=== PATIENT | female | born 1985 | race Caucasian/White ===

== ENCOUNTER 2020-09-20 | Emergency (ER) | payer MEDICAID, SELFPAY ==
--- NOTE | ~2020-09-20 | XR_ITS ---
EXAMINATION: XR chest 2V EXAM DATE: 09/20/2020 01:24 INDICATION: Midsternal chest pain for a day. Dizziness. TECHNIQUE: Frontal and lateral projections of the chest obtained and reviewed. Comparison is made to prior examination from 11/23/2018. FINDINGS: The lungs are clear. There are no pleural effusions. The cardiomediastinal silhouette is within normal limits. There is no pneumothorax suspected. The bones and soft tissues are unremarkab le. IMPRESSION: Unremarkable chest x-ray exam. Reviewed, dictated and finalized at location A.
[2020-09-20 00:03] VITALS: BP 150/91; PULSE 116; RESP 16; TEMP 36.3; O2SAT 100
--- NOTE | 2020-09-20 00:06 | ECG_ITS ---
Measurements Intervals [place] Rate: 110 P: 51 [place]: 104 QRS: 80 QRSD: 105 T: 50 QT: 316 QTc: 428 Interpretive Statements SINUS TACHYCARDIA WITH SHORT [place] INTERVAL ABNORMAL ECG Electronically Signed On 09-20-2020 8:05:45 CDT by Lazaro Ramos D.O.
--- NOTE | 2020-09-20 00:28 | PC.NURSE ---
Pt back up to the desk stating she feels like her pulse is high and asked to have her pulse checked. HR remains at 115 as on the EKG.
[2020-09-20 00:59] LABS: Basophils Percent Auto 0.4 % (0.2-1.2); Eosinophils Absolute Auto 0.2 K/mm3 (0-0.3); Eosinophils Percent Auto 1.5 % (0-4.4); Hemoglobin 14.6 g/dL (12.0-15.0); Immature Granulocyte Absolute 0.02 K/mm3 (0.00-0.031); Immature Granulocyte Percent A 0.2 % (0-0.5); Lymphocytes Absolute Auto 2.89 K/mm3 (0.9-3.2); Lymphocytes Percent Auto 28.3 % (18.3-44.2); Mean Corpuscular Hemoglobin 31.7 pg (26-34); Mean Corpuscular Volume 93.3 fl (80-100); Mean Platelet Volume 9.7 fl (7.4-10.4); Monocytes Absolute Auto 0.7 K/mm3 (0.1-0.6); Monocytes Percent Auto 6.7 % (2.6-8.5); Neutrophils Absolute Auto 6.4 K/mm3 (1.3-6.7); Neutrophils Percent Auto 62.9 % (45.5-73.1); Platelet Count Result 371 k/mm3 (150-375); Red Blood Count 4.61 M/mm3 (4.2-5.4); White Blood Count 10.2 K/mm3 (4.5-10.0)
[2020-09-20 01:08] LABS: Prothrombin Time 13.3 Seconds (11.1-14.7)
[2020-09-20 01:09] LABS: Partial Thromboplastin Time 28.1 SECONDS (22.3-36.8)
[2020-09-20 01:12] LABS: Anion Gap 8 mmol/L (8-16); Blood Urea Nitrogen 11 mg/dL (7-17); Calcium 9.5 mg/dL (8.4-10.2); Carbon Dioxide 26 mmol/L (22-30); Chloride 106 mmol/L (98-107); Estimated CRCL calculation 96 ml/min; Estimated Glomerular Filt Rate > 60; Glucose 116 mg/dL (65-105); Potassium 3.4 mmol/L (3.4-5.0); Sodium 140 mmol/L (137-145)
[2020-09-20 01:24] LABS: Troponin I < 0.012 ng/mL (0.000-0.034)
--- NOTE | 2020-09-20 01:46 | ED.GENADULT ---
HPI - General Adult General Chief complaint: Unspecified Stated complaint: limb numbness, weakness, tachycardia, CP,dysphagia Time Seen by Provider: 09/20/20 01:31 History of Present Illness HPI narrative: 35 yo female with h/o anxiety presents to the ED for multiple complaints. About 1 hour prior to arrival she became very dizzy. She then developed CP, SOB, and racing heart rate. She just started taking Buspar for anxiety. This felt like an anxiety attack, but stronger than she has ever had before. Symptoms have essentially resolved at this time. Related Data Allergies Allergy/AdvReac Type Severity Reaction Status Date / Time No Known Allergies Allergy Verified 09/20/20 01:55 Review of Systems Review of Systems: All systems reviewed & are unremarkable except as noted in HPI and below Constitutional: Constitutional: Reports as per HPI Eyes: Eyes: Reports no additional eye complaints ENT: Reports dizziness Cardiovascular: Cardiovascular: Reports as per HPI Respiratory: Respiratory: Reports as per HPI Gastrointestinal: Gastrointestinal: Denies abdominal pain Genitourinary: Genitourinary: Reports no additional female genitourinary complaints Musculoskeletal: Musculoskeletal: Reports no additional musculoskeletal complaints Neurologic: Reports as per HPI Psychiatric: Psychiatric: Reports anxiety [facility] Past Medical History Medical History (Updated 10/03/20 @ 11:04 by Sam Frederick MD) Anxiety Social History Social History (Updated 10/06/20 @ 10:26 by Sam Frederick MD) Smoking status: Never smoker Substance use: never Exam Const: General: healthy appearing, no acute distress and alert Orientation/consciousness: patient oriented x3 HENMT: Head: normal to inspection Neck: Neck: normal visual inspection and no lymphadenopathy Chest: Chest palpation & inspection: no tenderness Resp: Effort & Inspection: normal respiratory effort Auscultation: clear to auscultation bilaterally, no rales, no rhonchi and no wheezes Cardio: Jugular venous distension: no JVD Rate: regular rate Rhythm: regular rhythm Heart sounds: no murmurs GI: Inspection: non-distended GI Palp: Yes Soft to palpation and No Tenderness to palpation present (GI) Skin: General skin exam: normal color Neuro: General: patient oriented x3 and moves all extremities Speech: normal speech Extrem: General: no edema Psych: Appearance: well kempt Affect: normal affect Course Vital Signs Vital signs: Vital Signs Temperature 36.3 C L 09/20/20 00:03 Pulse Rate 116 H 09/20/20 00:03 Respiratory Rate 16 09/20/20 00:03 Blood Pressure 150/91 H 09/20/20 00:03 Pulse Oximetry 100 09/20/20 00:03 Temperature 36.3 C L 09/20/20 00:03 Pulse Rate 87 09/20/20 02:03 Respiratory Rate 16 09/20/20 02:03 Blood Pressure 120/80 09/20/20 02:03 Pulse Oximetry 99 09/20/20 02:03 Medical Decision Making MDM Narrative Medical decision making narrative: EKG normal aside from mild sinus tachycardia. Labs unremarkable. Symptoms could be reaction to new medication, anxiety, or a combination of the 2. Medical Records Medical records reviewed: Yes I reviewed the external patient's medical records. Vital Signs Vital Signs: Vital Signs Temperature 36.3 C L 09/20/20 00:03 Pulse Rate 116 H 09/20/20 00:03 Respiratory Rate 16 09/20/20 00:03 Blood Pressure 150/91 H 09/20/20 00:03 Pulse Oximetry 100 09/20/20 00:03 Temperature 36.3 C L 09/20/20 00:03 Pulse Rate 87 09/20/20 02:03 Respiratory Rate 16 09/20/20 02:03 Blood Pressure 120/80 09/20/20 02:03 Pulse Oximetry 99 09/20/20 02:03 Lab Data Lab results reviewed: Yes I reviewed the patient's lab results. Result diagrams: 09/20/20 00:50 09/20/20 00:50 Labs: Lab Results 09/20/20 09/20/20 09/20/20 Range/Units 00:50 00:50 00:50 WBC 10.2 H (4.5-10.0) K/mm3 RBC 4.61 (4.2-5.4) M/mm3 Hgb
[2020-09-20 01:48] VITALS: BP 120/87; PULSE 81; RESP 16; O2SAT 97
[2020-09-20 02:03] VITALS: BP 120/80; PULSE 87; RESP 16; O2SAT 99
== END 2020-09-20 02:03 | disposition home or self-care (01) ==
PROVIDERS: Emergency Provider Emergency Medicine
DX: F41.0 Panic disorder [episodic paroxysmal anxiety] (principal); R00.0 Tachycardia, unspecified
CPT/HCPCS: 36415; 71046; 80048; 84484; 85025; 85610; 85730; 93005; 96360; 99284

== ENCOUNTER 2021-03-21 19:18 | Emergency (ER) | payer BC, SELFPAY ==
--- NOTE | ~2021-03-21 | XR_ITS ---
EXAMINATION: XR chest 1V portable DATE: 03/22/2021 22:40 INDICATION: Psychosis. TECHNIQUE: A single frontal view of the chest was obtained. COMPARISON: Chest 2 views 09/20/2020 FINDINGS: The chest demonstrates clear lungs without pneumonia, pleural effusion, or pneumothorax. Th e heart size is normal. IMPRESSION: 1. No acute cardiopulmonary disease. Reviewed, dictated and finalized at location A.
[2021-03-21 19:31] VITALS: BP 135/101; PULSE 109; RESP 16; TEMP 36.5; O2SAT 97
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
--- NOTE | 2021-03-21 20:23 | ECG_ITS ---
Measurements Intervals [place] Rate: 87 P: 50 [place]: 132 QRS: 68 QRSD: 96 T: 46 QT: 395 QTc: 476 Interpretive Statements SINUS RHYTHM MINIMAL Q WAVES- INFERIOR LEADS ST ELEVATION IN DIFFUSE LEADS- PROABLY EARLY REPOLARIZATION ABNORMALITY BORDERLINE ECG Electronically Signed On 03-22-2021 7:13:52 CDT by Lazaro Ramos D.O.
--- NOTE | 2021-03-21 20:25 | PC.NURSE ---
Pt escalating at this time. Pt came out of room, grabbed the phone off the wall, threw it, then slammed it against the wall. Pt did return to room shortly then proceeded to run out of room 15, down the [address] and into the staff male bathroom. Pt then locked herself into the bathroom. Security was there and we were able to deescalate patient to unlock the door. Pt walked back to her room at this time being escorted by 2 security guards while screaming now will you pay attention to me. How is my son? he in the sun, he has a heart attack he . Pt has 2 security guards at her door way and [facility] to [facility] with getting her medicated and into her room. 2049-Pt willingly took 2 shots of benadryl, haldol, ativan given by NEFTALY Lal. Pt is currently allowing pct to do an ekg, and draw lab done by nova Gayle.
--- NOTE | 2021-03-21 20:30 | PC.NURSE ---
Pt yelling and screaming at staff. Pt running around ED. Pt refusing to stay in her room. PT thrashing about the ED and other patients. PT screaming and threatening staff. Pt locked herself in the staff bathroom and was making herself vomit. PT then went back to her room and stated she would like medication to help her calm down.
[2021-03-21 20:44] LABS: Add Urine Microscopic? YES; Appearance Urine Clear (Clear); Bilirubin Urine Negative (Negative); Blood Urine 3+ (Negative); Color Urine Yellow (Yellow); Glucose Urine UA Negative (Negative); Ketones Urine Negative (Negative); Leukocyte Esterase Ur Negative LEU/UL (Negative); Nitrate Urine Negative (Negative); Protein Urine Negative (Negative); RBC Urine 0-2 /hpf (0-2); Squamous Epithelial Cell Urine Occasional /hpf (Few); Urobilinogen Urine Negative mg/dL (<2.0); WBC Urine 0-3 /hpf
[2021-03-21] MEDS: diphenhydrAMINE HCl INJ 50 MG/ML VIAL 25 MG IM (20:46)
[2021-03-21] MEDS: LORazepam INJ (*CRX) 2 MG/ML VIAL IM (20:46)
[2021-03-21] MEDS: HALOPERIDOL LACTATE 5 MG/ML VIAL IM (20:47)
[2021-03-21 20:50] LABS: Specific Grav Ur 1.002 (1.001-1.035)
[2021-03-21 21:03] LABS: Basophils Absolute Auto 0.1 K/mm3 (0.0-0.1); Basophils Percent Auto 0.5 % (0.2-1.2); Eosinophils Absolute Auto 0.1 K/mm3 (0-0.3); Eosinophils Percent Auto 0.4 % (0-4.4); Hematocrit 38.9 % (37.0-47.0); Hemoglobin 13.4 g/dL (12.0-15.0); Immature Granulocyte Absolute 0.07 K/mm3 (0.00-0.031); Immature Granulocyte Percent A 0.4 % (0-0.5); Lymphocytes Absolute Auto 4.49 K/mm3 (0.9-3.2); Lymphocytes Percent Auto 28.1 % (18.3-44.2); Mean Corpuscular HGB Conc 34.4 g/dl (32-36); Mean Corpuscular Hemoglobin 32.1 pg (26-34); Mean Corpuscular Volume 93.3 fl (80-100); Mean Platelet Volume 9.1 fl (7.4-10.4); Monocytes Absolute Auto 0.9 K/mm3 (0.1-0.6); Monocytes Percent Auto 5.6 % (2.6-8.5); Neutrophils Absolute Auto 10.4 K/mm3 (1.3-6.7); Platelet Count Result 367 k/mm3 (150-375); Red Blood Count 4.17 M/mm3 (4.2-5.4); Red Cell Distribution Width 12.3 % (11.5-14.5)
[2021-03-21 21:15] VITALS: BP 121/92; PULSE 86; RESP 18; TEMP 36.8; O2SAT 98
[2021-03-21 21:15] LABS: Acetaminophen < 10 ug/mL (10-30); Ethanol < 10 mg/dL (<10); Salicylate < 1.0 mg/dL (2-20)
[2021-03-21 21:16] LABS: Alanine Aminotransferase 17 U/L (4-35); Albumin Level 4.7 g/dL (3.5-5.1); Alkaline Phosphatase 94 U/L (38-126); Anion Gap 12 mmol/L (8-16); Aspartate Amino Transferase 21 U/L (14-36); Bilirubin,Total 0.3 mg/dL (0.2-1.3); Blood Urea Nitrogen 5 mg/dL (7-17); Calcium 9.3 mg/dL (8.4-10.2); Carbon Dioxide 22 mmol/L (22-30); Chloride 106 mmol/L (98-107); Estimated Glomerular Filt Rate > 60; Glucose 93 mg/dL (65-110); Potassium 3.5 mmol/L (3.4-5.0); Sodium 140 mmol/L (137-145)
[2021-03-21 21:25] LABS: Barbiturate Screen Urine Negative (Negative); Benzodiazepines Screen Urine Negative (Negative)
[2021-03-21 21:26] LABS: Amphetamine Screen Urine Negative (Negative); Cannabinoid Screen Urine Positive (Negative); Methadone Screen Urine Negative (Negative); Opiate Screen Urine Negative (Negative); Phencyclidine Screen Urine Negative (Negative)
--- NOTE | 2021-03-21 21:42 | PC.NURSE ---
Pt denies suicidal ideation, states she is already . Denies thoughts of hurting herself, denies previous suicide attempts.
--- NOTE | 2021-03-21 21:44 | PC.NURSE ---
Pt states recent changes to her psych meds, states she received her psych meds from another hospital, does not have a PCP managing medications at this time.
--- NOTE | 2021-03-21 22:16 | PC.NURSE ---
per erp dr brown - pt medically clear at this time
--- NOTE | 2021-03-21 22:20 | PC.NURSE ---
yeison @ Crisis contacted at this time. Someone will be out to see this patient shortly.
--- NOTE | 2021-03-21 22:42 | PC.NURSE ---
Pt RAPID covid swabbed. sent to lab, called for receipt.
--- NOTE | 2021-03-21 22:56 | PC.NURSE ---
Crisis coordinator at bedside
--- NOTE | 2021-03-21 23:00 | PC.NURSE ---
Took over care of pt at this time. Pt resting in bed with 1:[address] Pt remains calm. Pt [place] score negative, still requires sitter due to frequent episodes of aggression in ED this evening.
[2021-03-21 23:05] LABS: EDCOVIDSCREEN Negative (Negative)
[2021-03-21] MEDS: NICOTINE (*PBKC) 21 MG PATCH 1 PATCH (23:19)
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
--- NOTE | 2021-03-22 00:31 | PC.NURSE ---
Carie from [facility] called for pt information. Facility needs chart and involuntary paperwork faxed to facility. [phone].
--- NOTE | 2021-03-22 00:38 | PC.NURSE ---
spoke with Mirela @ [facility] - rn report given and will be passed on to the intake department.
--- NOTE | 2021-03-22 00:45 | PC.NURSE ---
Paperwork faxed to [facility] at this time.
--- NOTE | 2021-03-22 02:13 | PC.NURSE ---
Carie from [facility] called, no female beds available at facility at this time.
--- NOTE | 2021-03-22 03:02 | PC.NURSE ---
[facility] unable to accept pt at this time due to high acuity on adult unit.
--- NOTE | 2021-03-22 03:27 | PC.NURSE ---
Pt asks, is my family okay? and then proceeds to fall asleep.
--- NOTE | 2021-03-22 05:16 | PC.NURSE ---
pt requesting to speak with a nurse at this time. Pt states I want to go home, im not suicidal , or homicidal so i can go home. This nurse explained that the patient was being involuntarily place and the patient said I am not going to [facility], i want to go to [place]. When this rn asked the patient if she was still seeing or hearing things she said no, I mean I hear what is going on around me in the world but nothing else. I asked the patient if she was still seeing glass orbs on her feet or suns exploding and patient states No, that all already happened.
[2021-03-22 05:37] VITALS: BP 120/81; PULSE 92; RESP 18; O2SAT 94
--- NOTE | 2021-03-22 07:28 | PC.NURSE ---
Report received from Summer RN no further questions or concerns at this time, no further questions or concerns at this time, pt resting quietly
--- NOTE | 2021-03-22 07:45 | PC.NURSE ---
Updated patients contact(mother), and informed her she has been evaluated by crisis and awaiting placement
--- NOTE | 2021-03-22 09:58 | PC.NURSE ---
Pt is sleeping/resting quietly
[2021-03-22] MEDS: LORazepam (*CRX) 1 MG TABLET PO ×2 (10:20→21:52)
--- NOTE | 2021-03-22 11:27 | PC.NURSE ---
Pt has increased her voice and yelled at staff pt states she is no longer SI/HI and want her belongings this is torture , informed doctor Sayeld of her request doctors states he wants to keep her on precautions with sitter. Pt requested home medications, medications updated, will give medications
--- NOTE | 2021-03-22 11:29 | PC.NURSE ---
Spoke with Samanta post tensioning ironworker and will fax info to [facility], and [facility]
[2021-03-22] MEDS: SERTRALINE HCL 50 MG TABLET PO (12:09)
[2021-03-22] MEDS: ZIPRASIDONE HCL 80 MG CAPSULE PO ×2 (12:09→21:55)
[2021-03-22] MEDS: hydrOXYzine HCL 25 MG TABLET 75 MG PO ×2 (12:15→18:49)
--- NOTE | 2021-03-22 14:56 | PC.NURSE ---
Called Mom and left message to call back. Patient wants the number for her Step father. Nurse and machine records units supervisor notified. EN
--- NOTE | 2021-03-22 17:05 | PC.NURSE ---
Mother was updated 1600
--- NOTE | 2021-03-22 19:36 | PC.NURSE ---
informed doctor of pain, doctor is putting in something for pain, pharmacy changed nicotine patch order, now available to pull
[2021-03-22] MEDS: NICOTINE (*PBKC) 21 MG PATCH 1 PATCH TRANSDERM (19:45)
[2021-03-22] MEDS: IBUPROFEN 400 MG TABLET PO (21:52)
[2021-03-22 23:49] VITALS: BP 125/77; PULSE 90; RESP 17; O2SAT 99
[2021-04-26 14:41] LABS: Reference Lab Test Result None Detected
== END 2021-03-22 23:50 | disposition home or self-care (01) ==
PROVIDERS: Emergency Medicine; Emergency Provider Emergency Medicine
DX: F29 Unspecified psychosis not due to a substance or known physiological condition (principal)
CPT/HCPCS: 36415; 71045; 80053; 80307; 81001; 81025; 84443; 85025; 87426; 93005; 96372; 99284; A9270; C9803; J1200; J1630; J2060

== ENCOUNTER 2021-07-20 17:12 | Emergency (ER) | payer BC, SELFPAY ==
[2021-07-20 17:30] VITALS: BP 141/95; PULSE 92; RESP 16; TEMP 36.2; O2SAT 98
[2021-07-20 18:08] LABS: Basophils Absolute Auto 0.1 K/mm3 (0.0-0.1); Basophils Percent Auto 0.4 % (0.2-1.2); Hematocrit 42.9 % (37.0-47.0); Hemoglobin 14.3 g/dL (12.0-15.0); Immature Granulocyte Absolute 0.05 K/mm3 (0.00-0.031); Immature Granulocyte Percent A 0.4 % (0-0.5); Lymphocytes Absolute Auto 1.79 K/mm3 (0.9-3.2); Lymphocytes Percent Auto 12.8 % (18.3-44.2); Mean Corpuscular HGB Conc 33.3 g/dl (32-36); Mean Corpuscular Hemoglobin 28.4 pg (26-34); Mean Corpuscular Volume 85.1 fl (80-100); Mean Platelet Volume 8.6 fl (7.4-10.4); Monocytes Absolute Auto 0.9 K/mm3 (0.1-0.6); Monocytes Percent Auto 6.4 % (2.6-8.5); Neutrophils Absolute Auto 11.2 K/mm3 (1.3-6.7); Platelet Count Result 445 k/mm3 (150-375); Red Blood Count 5.04 M/mm3 (4.2-5.4); Red Cell Distribution Width 13.8 % (11.5-14.5)
[2021-07-20 18:23] LABS: Alanine Aminotransferase 29 U/L (4-35); Albumin Level 4.9 g/dL (3.5-5.1); Alkaline Phosphatase 130 U/L (38-126); Anion Gap 10 mmol/L (8-16); Aspartate Amino Transferase 29 U/L (14-36); Bilirubin,Total 0.5 mg/dL (0.2-1.3); Blood Urea Nitrogen 8 mg/dL (7-17); Calcium 9.8 mg/dL (8.4-10.2); Carbon Dioxide 23 mmol/L (22-30); Chloride 107 mmol/L (98-107); Estimated CRCL calculation 89 ml/min; Estimated Glomerular Filt Rate > 60; Glucose 134 mg/dL (65-110); Potassium 3.7 mmol/L (3.4-5.0); Sodium 140 mmol/L (137-145)
--- NOTE | 2021-07-20 18:30 | PC.NURSE ---
pt to [place] phones multiple times. loud at times and crying at others.
[2021-07-20 18:39] LABS: Add Urine Microscopic? YES; Appearance Urine Cloudy (Clear); Bacteria Urine Trace /hpf; Bilirubin Urine Negative (Negative); Blood Urine 2+ (Negative); Color Urine Amber (Yellow); Glucose Urine UA Negative (Negative); Hyaline Casts Urine 20-29 /lpf; Ketones Urine Trace mg/dL (Negative); Leukocyte Esterase Ur Negative LEU/UL (Negative); Mucus Urine Heavy /lpf; Nitrate Urine Negative (Negative); Protein Urine 2+ mg/dL (Negative); Specific Grav Ur 1.021 (1.001-1.035); Squamous Epithelial Cell Urine Many /hpf (Few); Urobilinogen Urine Negative mg/dL (<2.0); WBC Urine 0-3 /hpf
[2021-07-20 19:10] LABS: Ethanol < 10 mg/dL (<10)
[2021-07-20] MEDS: HALOPERIDOL LACTATE 5 MG/ML VIAL IM (19:23)
--- NOTE | 2021-07-20 19:27 | PC.NURSE ---
patient seen by ED staff slamming public phone and shouting let me out of here . pt escorted back to room. pt then began to states how she fell from [facility] and needed to get home to her son. pt screaming that she wanted to go home. Pt extremely tearful and anxious. aware. new orders received.
[2021-07-20 19:30] LABS: Barbiturate Screen Urine Negative (Negative); Benzodiazepines Screen Urine Positive (Negative)
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
[2021-07-20 19:36] LABS: Amphetamine Screen Urine Negative (Negative); Cannabinoid Screen Urine Positive (Negative); Cocaine Screen Urine Negative (Negative); Methadone Screen Urine Negative (Negative); Opiate Screen Urine Negative (Negative); Phencyclidine Screen Urine Negative (Negative)
[2021-07-20 19:53] LABS: SARS-CoV-2 RNA PCR Negative
--- NOTE | 2021-07-20 20:02 | PC.NURSE ---
[facility] notified that pt is medically cleared and ready for eval
--- NOTE | 2021-07-20 20:57 | PC.NURSE ---
pt requesting to leave, crisis here to eval patient
--- NOTE | 2021-07-20 21:46 | PC.NURSE ---
crisis recommend inpatient treatment will make involuntary paper work
--- NOTE | 2021-07-20 21:56 | PC.NURSE ---
pt given a sandwich and chips
--- NOTE | 2021-07-21 00:08 | PC.NURSE ---
Frank simons [facility] called and said patient has been accepted to their facility. Dr. De Anda is the accepting physician. Requested that Page 1 of the Petition be re-faxed to her with the place being held filled out with our facility. Faxed information successfully and relayed information to RN.
[2021-07-21 00:28] VITALS: BP 131/88; PULSE 86; RESP 18; TEMP 36.9; O2SAT 98
--- NOTE | 2021-07-21 00:32 | PC.NURSE ---
accepted at [facility]
--- NOTE | 2021-07-21 00:35 | PC.NURSE ---
attempted to call [facility] no answer
--- NOTE | 2021-07-21 02:54 | PC.NURSE ---
became verbal aggressive I want to call my mom even in half-way I get a phone call advised to return to room. went back to room and sat on bed.
[2021-07-21] MEDS: HALOPERIDOL LACTATE 5 MG/ML VIAL IM (02:56)
[2021-07-21] MEDS: NICOTINE (*PBKC) 14 MG PATCH 1 PATCH TRANSDERM (03:07)
[2021-07-21 04:42] VITALS: BP 127/88; PULSE 96; RESP 18; O2SAT 97
--- NOTE | 2021-07-21 04:43 | PC.NURSE ---
c/o feeling cold and sweating resp even unlabored vs normal
== END 2021-07-21 05:11 ==
PROVIDERS: Emergency Medicine; Emergency Provider Emergency Medicine
DX: F20.9 Schizophrenia, unspecified (principal); Z20.822 Contact with and (suspected) exposure to COVID-19
CPT/HCPCS: 36415; 80053; 80307; 81001; 81025; 84443; 85025; 96372; 99285; A9270; C9803; J1630; U0003; U0005

== ENCOUNTER 2021-12-09 12:47 | Emergency (ER) | payer BC, SELFPAY ==
--- NOTE | 2021-12-09 12:49 | ECG_ITS ---
Measurements Intervals [place] Rate: 98 P: 21 [place]: 112 QRS: 56 QRSD: 93 T: 23 QT: 407 QTc: 520 Interpretive Statements SINUS RHYTHM WITH SHORT [place] INTERVAL DELAYED PRECORDIAL R/S TRANSITION BORDERLINE T WAVE ABNORMALITY- INFERIOR LEADS BORDERLINE ECG Electronically Signed On 12-09-2021 18:22:58 CDT by Lazaro Ramos D.O.
[2021-12-09] MEDS: HALOPERIDOL LACTATE 5 MG/ML VIAL IM (13:00)
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
[2021-12-09 13:08] VITALS: BP 152/97; PULSE 125; RESP 24; TEMP 36.6; O2SAT 98
[2021-12-09 13:15] LABS: Basophils Absolute Auto 0.1 K/mm3 (0.0-0.1); Basophils Percent Auto 0.7 % (0.2-1.2); Eosinophils Absolute Auto 0.1 K/mm3 (0-0.3); Eosinophils Percent Auto 0.5 % (0-4.4); Hematocrit 40.5 % (37.0-47.0); Hemoglobin 13.3 g/dL (12.0-15.0); Immature Granulocyte Absolute 0.07 K/mm3 (0.00-0.031); Immature Granulocyte Percent A 0.5 % (0-0.5); Lymphocytes Absolute Auto 4.67 K/mm3 (0.9-3.2); Lymphocytes Percent Auto 31.2 % (18.3-44.2); Mean Corpuscular HGB Conc 32.8 g/dl (32-36); Mean Corpuscular Volume 88.4 fl (80-100); Mean Platelet Volume 9.8 fl (7.4-10.4); Monocytes Absolute Auto 1.5 K/mm3 (0.1-0.6); Monocytes Percent Auto 10.2 % (2.6-8.5); Neutrophils Absolute Auto 8.5 K/mm3 (1.3-6.7); Neutrophils Percent Auto 56.9 % (45.5-73.1); Platelet Count Result 338 k/mm3 (150-375); Red Blood Count 4.58 M/mm3 (4.2-5.4); Red Cell Distribution Width 13.7 % (11.5-14.5)
[2021-12-09 13:24] LABS: Albumin Level 4.5 g/dL (3.5-5.1); Alkaline Phosphatase 74 U/L (38-126); Anion Gap 21 mmol/L (8-16); Bilirubin,Total 0.6 mg/dL (0.2-1.3); Blood Urea Nitrogen 5 mg/dL (7-17); Calcium 9.2 mg/dL (8.4-10.2); Carbon Dioxide 14 mmol/L (22-30); Chloride 103 mmol/L (98-107); Estimated Glomerular Filt Rate > 60; Glucose 128 mg/dL (65-110); Potassium 3.8 mmol/L (3.4-5.0); Sodium 138 mmol/L (137-145)
[2021-12-09 13:35] LABS: Alanine Aminotransferase 32 U/L (6-35); Aspartate Amino Transferase 29 U/L (14-36)
[2021-12-09 13:49] LABS: Acetaminophen < 10 ug/mL (10-30); Ethanol < 10 mg/dL (<10); Salicylate < 1.0 mg/dL (2-20)
[2021-12-09 13:56] LABS: Thyroid Stimulating Hormone 0.032 uIU/mL (0.465-4.680)
[2021-12-09 14:43] LABS: SARS-CoV-2 RNA PCR Negative
[2021-12-09 15:30] LABS: Appearance Urine Clear (Clear); Bilirubin Urine Negative (Negative); Blood Urine Trace-lysed (Negative); Color Urine Yellow (Yellow); Glucose Urine UA Negative (Negative); Ketones Urine Negative (Negative); Leukocyte Esterase Ur Trace LEU/UL (Negative); Nitrate Urine Negative (Negative); Protein Urine Negative (Negative); Urobilinogen Urine 0.2 mg/dL (<2.0); pH Urine 5.5 (5.0-9.0)
[2021-12-09 15:33] LABS: Add Urine Microscopic? YES; Bacteria Urine Trace /hpf; Hyaline Casts Urine 15-19 /lpf; Mucus Urine Rare /lpf; RBC Urine 0-2 /hpf (0-2); Squamous Epithelial Cell Urine Moderate /hpf (Few)
[2021-12-09 15:58] LABS: Amphetamine Screen Urine Negative (Negative); Barbiturate Screen Urine Negative (Negative); Benzodiazepines Screen Urine Negative (Negative); Cannabinoid Screen Urine Positive (Negative); Cocaine Screen Urine Negative (Negative); Methadone Screen Urine Negative (Negative); Opiate Screen Urine Negative (Negative); Phencyclidine Screen Urine Negative (Negative)
--- NOTE | 2021-12-09 16:01 | PC.NURSE ---
pt medically clear at this time.
--- NOTE | 2021-12-09 16:06 | PC.NURSE ---
crisis is sending an production utility worker to evaluate the patient at this time.
[2021-12-09 16:24] VITALS: BP 136/92; PULSE 92; RESP 18; O2SAT 99
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
[2021-12-09] MEDS: LORazepam INJ (*CRX) 2 MG/ML VIAL IV PUSH (20:52)
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
--- NOTE | 2021-12-09 21:21 | PC.NURSE ---
pt sleeping at this time, left ankle restraint released at this time.
--- NOTE | 2021-12-09 21:23 | PC.NURSE ---
all restraints removed at this time. pt calm and resting comfortably at this time.
[2021-12-09 21:36] VITALS: BP 110/91; PULSE 82; RESP 15; O2SAT 97
[2021-12-09] MEDS: NICOTINE (*PBKC) 21 MG PATCH 1 PATCH TRANSDERM (21:46)
[2021-12-09 21:53] VITALS: TEMP 36.3
--- NOTE | 2021-12-09 22:37 | PC.NURSE ---
[facility] declined to accept pt. Per road worker present in dept. with another pt, she recommends this RN call crisis line back and let them know that pt needs other placement.
[2021-12-09] MEDS: ZIPRASIDONE HCL 80 MG CAPSULE PO (22:59)
--- NOTE | 2021-12-10 07:10 | PC.NURSE ---
Patient care report received from [facility]. All questions answered at this time.
[2021-12-10 11:31] LABS: Pregnancy On Board Control Positive; Urine Pregnancy Test Negative
[2021-12-10 13:00] VITALS: BP 138/80; PULSE 92; RESP 18; O2SAT 99
--- NOTE | 2021-12-10 13:02 | PC.NURSE ---
lunch tray ordered for pt. at this time
--- NOTE | 2021-12-10 13:20 | PC.NURSE ---
pt starting to escalate, pt screaming you fucking bitch at the bedside sitter, pt then attempted to exit the ed. pt was escorted by rn and security back into her room.
--- NOTE | 2021-12-10 13:22 | PC.NURSE ---
pt to nurses station requesting her daily medications.
--- NOTE | 2021-12-10 13:36 | PC.NURSE ---
when trying to verify medications with the pt pt denied taking Depakote due to hair falling out stated that she was taking Geodon 80 BID OLANZAPINE 5MG PRN X1 DAILY HYDROXYZINE 100MG TID PRN
[2021-12-10] MEDS: ZIPRASIDONE HCL 80 MG CAPSULE PO ×2 (13:53→23:40)
[2021-12-10] MEDS: LORazepam (*CRX) 1 MG TABLET 2 MG (13:53)
--- NOTE | 2021-12-10 13:53 | PC.NURSE ---
PT AGITATED, TRIED TO ELOPE ESCORTED BACK TO ROOM VORB FOR ATIVAN 2 MG PO X1 FROM DR ARGUELLO AM MEDS GIVEN TO PT
--- NOTE | 2021-12-10 15:00 | PC.NURSE ---
pt in room, eyes closed, equal chest rise and fall noted. sitter at bedside
--- NOTE | 2021-12-10 19:01 | PC.NURSE ---
pt in room, eyes closed, dinner order placed. no further outbursts at this time
--- NOTE | 2021-12-10 19:13 | PC.NURSE ---
No updates from crisis today per pt's ED RN. This RN calling crisis for update. Spoke with [facility] staff, awaiting call back.
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
--- NOTE | 2021-12-10 22:44 | PC.NURSE ---
PT RESTING IN ROOM, NO OUTBURSTS THIS EVENING MOTHER UPDATED ON POC.
[2021-12-10 22:52] VITALS: BP 127/68; PULSE 71; RESP 16; TEMP 36.6; O2SAT 99
--- NOTE | 2021-12-10 22:53 | PC.NURSE ---
PT CALM AND EATING IN ROOM
--- NOTE | 2021-12-10 23:29 | PC.NURSE ---
Per dairy farmworker at [facility], no available beds tonight but she will resume placement search in am.
[2021-12-10] MEDS: hydrOXYzine HCL 25 MG TABLET 100 MG PO (23:44)
[2021-12-11] MEDS: ACETAMINOPHEN 500 MG TABLET 1000 MG PO (05:36)
--- NOTE | 2021-12-11 07:38 | PC.NURSE ---
Pt walked out of ER - Called security
[2021-12-11] MEDS: LORazepam INJ (*CRX) 2 MG/ML VIAL IV PUSH (08:12)
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
[2021-12-11 08:28] LABS: Thyroid Stimulating Hormone 0.297 uIU/mL (0.465-4.680)
--- NOTE | 2021-12-11 08:28 | PC.NURSE ---
07:51 Pt back to the hospital by the [place] police, Ativan given, Pt resting quietly at this time.
[2021-12-11] MEDS: ZIPRASIDONE HCL 80 MG CAPSULE PO ×2 (10:50→23:34)
--- NOTE | 2021-12-11 11:59 | PC.NURSE ---
Pt awake, called her mom on the phone, crying asking her mom to come pick her up. Pt calm at this time back to her room.
[2021-12-11 13:05] VITALS: BP 107/73; PULSE 91; RESP 16; TEMP 36.5; O2SAT 97
--- NOTE | 2021-12-11 15:49 | PC.NURSE ---
All pt information sent to [facility] and [facility]. Pt is on waiting list at [facility] and [facility] has open bed
--- NOTE | 2021-12-11 16:00 | PC.NURSE ---
Pt talked on the phone with Luiz from [facility], pt does not want to go to [facility]
[2021-12-11] MEDS: hydrOXYzine HCL 25 MG TABLET 100 MG PO (17:11)
[2021-12-11] MEDS: OLANZapine 5 MG TABLET PO (17:12)
--- NOTE | 2021-12-11 20:10 | PC.NURSE ---
PT IS ON WAIT LIST AT [facility]. [facility] STATES THEY MAY HAVE FEMALE BED TOMORROW
--- NOTE | 2021-12-11 22:20 | PC.NURSE ---
Ruth Ann from [facility] here at this time to re-eval Pt and update Paper work Pt Currently sleeping at this hour. sitter at bedside.
[2021-12-12] MEDS: NICOTINE (*PBKC) 14 MG PATCH 1 PATCH TRANSDERM (06:33)
[2021-12-12 09:17] VITALS: BP 121/81; PULSE 65; RESP 20; TEMP 36.2; O2SAT 99
--- NOTE | 2021-12-12 09:29 | PC.NURSE ---
[facility] returned call and did not have a rooms for patient.
[2021-12-12] MEDS: ZIPRASIDONE HCL 80 MG CAPSULE PO (10:37)
[2021-12-12] MEDS: hydrOXYzine HCL 25 MG TABLET 100 MG PO (11:12)
--- NOTE | 2021-12-12 11:15 | PC.NURSE ---
[facility] accepting.
--- NOTE | 2021-12-12 11:27 | PC.NURSE ---
Nurse to nurse report give to [facility]. [facility] calling for [facility].
== END 2021-12-12 12:45 ==
PROVIDERS: Emergency Medicine; Emergency Provider Emergency Medicine
DX: F29 Unspecified psychosis not due to a substance or known physiological condition (principal); F22 Delusional disorders; Z20.822 Contact with and (suspected) exposure to COVID-19; F20.9 Schizophrenia, unspecified; F17.200 Nicotine dependence, unspecified, uncomplicated; R94.31 Abnormal electrocardiogram [ECG] [EKG]
CPT/HCPCS: 36415; 80053; 80307; 81001; 81025; 84439; 84443; 85025; 93005; 96372; 96374; 99285; A9270; C9803; J1630; J2060; U0003; U0005